=== PATIENT | male | born 1970 | race Caucasian/White ===

== ENCOUNTER 2022-10-16 07:14 | Emergency (ER) | payer OTHER ==
[~2022-10-16] VITALS: Ht 188 cm; Wt 134.7 kg
--- NOTE | 2022-10-16 07:19 | NUR ---
[id number] AND [id number] FOR OK TO BOOK. PT WAS SHORT OF BREATH DURING ARREST. PT DENIES SOB OR CP UPON ARRIVAL.
--- NOTE | 2022-10-16 07:20 | NUR ---
Note jermaine in EDM - 10/16/22 at 0752 by LASHA [id number] AND [id number] FOR OTB. PT WAS SHORT OF BREATH DURING ARREST. PT DENIES SOB OR CP ON ARRIVAL. BG [id number] ON SCENE.
--- NOTE | 2022-10-16 07:20 | NUR ---
AT BEDSIDE FOR EVAL
[2022-10-16 07:56] LABS: BASOPHILS % (AUTO) 0.3 % (0.0-2.0); EOSINOPHILS % (AUTO) 0.3 % (0.0-6.0); HEMATOCRIT 47 % (39-51); HEMOGLOBIN 15.9 g/dL (13.5-17.5); LYMPHOCYTES # (AUTO) 1.7 K/uL (0.8-4.8); MEAN CORPUSCULAR HGB CONC 34 g/dl (31.0-36.0); MEAN CORPUSCULAR VOLUME 93 fL (80-96); MONOCYTES % (AUTO) 7.2 % (2.0-12.0); NEUTROPHILS # (AUTO) 11.5 K/uL (1.8-8.9); NEUTROPHILS % (AUTO) 80.2 % (43.0-81.0); PLATELET COUNT (AUTO) 267 K/uL (150-450); RED BLOOD CELL COUNT(AUTO) 5.07 MIL/uL (4.5-6.0); WHITE BLOOD COUNT (AUTO) 14.4 K/uL (4.3-11.0)
[2022-10-16] MEDS ORDERED: LIDOCAINE HCL/PF 1% 30 ML VIAL TP ONE (08:30)
[2022-10-16 08:38] LABS: CALCIUM, SERUM 8.9 mg/dL (8.5-10.1); CARBON DIOXIDE 20 mmol/L (21-32); CHLORIDE 99 mmol/L (98-107); CREATININE 1.1 mg/dL (0.6-1.3); GLUCOSE 143 mg/dL (74-106); POTASSIUM 3.7 mmol/L (3.5-5.1); SODIUM SERUM 133 mmol/L (136-145); UREA NITROGEN, BLOOD 13 mg/dL (7-18)
--- NOTE | 2022-10-16 09:11 | NUR ---
Patient discharged under lapd cutody in stable condition. Written and verbal after care instructions given. Patient verbalizes understanding of instruction.
[2022-10-16 09:13] VITALS: BP 132/66
== END 2022-10-16 09:14 ==
LOC: ER 07:49
DX: R55 Syncope and collapse (principal); Z60.2 Problems related to living alone
CPT/HCPCS: 99284; 93005; 85025; 80048; 36415; 84484; J3490